=== PATIENT | male | born 1970 | race Two or more races ===

== ENCOUNTER 2022-01-16 15:09 | Emergency (ER) | payer OTHER ==
[~2022-01-16] VITALS: Ht 165.1 cm; Wt 72.6 kg
[2022-01-16] MEDS ORDERED: DICLOFENAC SODI75 MG PO (16:58)
== END 2022-01-16 17:05 | disposition home or self-care (01) ==
LOC: ER 15:09
DX: M25.561 Pain in right knee (principal)